=== PATIENT | male | born 1990 | race Caucasian/White ===

== ENCOUNTER 2017-10-30 17:40 | Emergency (ER) | payer MEDICAID ==
[~2017-10-30] VITALS: Ht 182.9 cm; Wt 98.0 kg
[2017-10-30 18:15] VITALS: Ht 182.9 cm; Wt 98.0 kg
[2017-10-30 19:40] VITALS: BP 140/83
== END 2017-10-30 19:40 | disposition home or self-care (01) ==
LOC: ED 17:40
DX: J03.90 Acute tonsillitis, unspecified (principal)
CPT/HCPCS: J7512